=== PATIENT | male | born 1985 | race American Indian/Alaskan Native ===

== ENCOUNTER 2021-05-22 04:27 | Emergency (ER) | payer OTHER ==
--- NOTE | 2021-05-22 04:37 | Emergency Department Report ---
ED Extremity Problem HPI - General Stated complaint: CHEST PAIN/ARM PAIN Source: patient Mode of arrival: Ambulatory - History of Present Illness Initial comments: Patient is a 35-year-old -[place] male with no past medical history presents to the ED with complaint of acute onset persistent nontraumatic lateral right neck pain that radiates to the right shoulder, anterior right chest wall and distal right with tingling sensation for the last 2 weeks after heavy lifting in gymnasium. Patient states that he is currently taking ibuprofen as needed for pain as prescribed by her his primary care physician but that in the last 5 days the pain has not resolved and is getting worse. Patient denies chest pain, shortness of breath, dizziness, syncope, traumatic injury, fall, back pain, change in vision, syncope, headache, diaphoresis, nausea and vomiting, abdominal pain, fever and chills. MD Complaint: extremity pain (Right shoulder pain), joint paint (Right shoulder pain), other (Right lateral neck pain that radiates to the anterior right chest wall) -: Sudden, week(s) (2) Location: right (Right shoulder), upper extremity (Right shoulder), other (Anterior right chest wall and right lateral neck pain) History of Same: No -: Yes myalgia, Yes arthralgia Radiation: distal Severity scale (0 -10): 8 Quality: aching, sharp Consistency: constant Improves with: nothing Worsens with: weight bearing, walking, exertion, palpation Associated Symptoms: denies other symptoms, chest pain (Anterior right lateral chest wall pain), arthralgias (Right shoulder pain), other (Right lateral neck pain). denies: shortness of breath, fever, myalgias - Related Data Previous Rx's Medication Instructions Recorded Last Taken Type Naproxen Sodium [Aleve] 220 mg PO Q8H PRN #50 tablet 02/17/15 Unknown Rx Baclofen 20 mg PO Q12H PRN #24 tablet 05/22/21 Unknown Rx predniSONE [Deltasone] 60 mg PO QDAY #15 tab 05/22/21 Unknown Rx traMADoL [Ultram] 50 mg PO Q6HR PRN #12 tablet 05/22/21 Unknown Rx Allergies Allergy/AdvReac Type Severity Reaction Status Date / Time No Known Allergies Allergy Unverified 02/17/15 01:29 ED Review of Systems ROS: Stated complaint: CHEST PAIN/ARM PAIN Other details as noted in HPI Constitutional: denies: chills, fever Eyes: denies: eye pain, eye discharge, vision change ENT: denies: ear pain, throat pain Respiratory: denies: cough, shortness of breath, wheezing Cardiovascular: chest pain (Anterior right chest wall pain). denies: palpit ations Endocrine: no symptoms reported Gastrointestinal: denies: abdominal pain, nausea, diarrhea Genitourinary: denies: urgency, dysuria Musculoskeletal: arthralgia (Right shoulder pain), other (Lateral right neck pain). denies: back pain, joint swelling Skin: denies: rash, lesions Neurological: denies: headache, weakness, paresthesias Psychiatric: denies: anxiety, depression Hematological/Lymphatic: denies: easy bleeding, easy bruising ED Past Medical Hx - Past Medical History Hx Hypertension: No Hx CVA: No - Social History Smoking Status: Never Smoker Substance Use Type: None - Medications Home Medications: Home Medications Medication Instructions Recorded Confirmed Last Taken Type Naproxen Sodium [Aleve] 220 mg PO Q8H PRN #50 tablet 02/17/15 Unknown Rx Baclofen 20 mg PO Q12H PRN #24 tablet 05/22/21 Unknown Rx predniSONE [Deltasone] 60 mg PO QDAY #15 tab 05/22/21 Unknown Rx traMADoL [Ultram] 50 mg PO Q6HR PRN #12 tablet 05/22/21 Unknown Rx ED Physical Exam - General General appearance: alert, in no apparent distress - Head Head exam: Present: atraumatic, normocephalic, normal inspection - Eye Eye exam: Present: normal appearance, PERRL, EOMI Pupils: Present: normal accommodation - ENT ENT exam: Present: normal exam, normal orophraynx, mucous membranes moist, TM's normal bilaterally, normal external ear exam - Neck Neck exam: Present: normal inspection, tenderness (Palpable right lateral cervical paraspinal musculoskeletal tenderness), full ROM - Respiratory Respiratory exam: Present: normal lung sounds bilaterally, chest wall tenderness (Palpable reproducible anterior right chest wall tenderness). Absent: respiratory distress, wheezes, rales, rhonchi, accessory muscle use, decreased breath sounds, prolonged expiratory - Cardiovascular Cardiovascular Exam: Present: regular rate, normal rhythm, normal heart sounds. Absent: systolic murmur, diastolic murmur, rubs, gallop - GI/Abdominal GI/Abdominal exam: Present: soft, normal bowel sounds. Absent: tenderness, guarding, rebound, hyperactive bowel sounds, hypoactive bowel sounds, mass - Extremities Exam Extremities exam: Present: normal inspection, full ROM, tenderness (Palpable right shoulder tenderness), normal capillary refill - Back Exam Back exam: Present: normal inspection, full ROM. Absent: tenderness, CVA tenderness (R), CVA tenderness (L), muscle spasm, paraspinal tenderness, vertebral tenderness - Neurological Exam Neurological exam: Present: alert, oriented X3, CN II-XII intact, normal gait, reflexes normal - Psychiatric Psychiatric exam: Present: normal affect, normal mood - Skin Skin exam: Present: warm, dry, intact, normal color. Absent: rash ED Course Vital Signs 05/22/21 05/22/21 04:54 05:02 Temperature 98.4 F Pulse Rate 79 Respiratory 24 19 Rate Blood Pressure 138/71 [Right] O2 Sat by Pulse 100 Oximetry ED Medical Decision Making - Medical Decision Making This is a 35-year-old -[place] male with no past medical history presents to the ED with complaint of acute onset persistent nontraumatic lateral right neck pain that radiates to the right shoulder, anterior right chest wall and distal right with tingling sensation for the last 2 weeks after heavy lifting in gymnasium. Patient states that he is currently taking ibuprofen as needed for pain as prescribed by her his primary care physician but that in the last 5 days the pain has not resolved and is getting worse. In the ED, patient is alert and oriented x3 and is not in any distress. Patient is hemodynamically stable. Patient was treated for pain in the ED and based on the history and physical exam findings, patient symptoms are likely due to cervical radiculopathy. Patient was discharged home on medications and advised to follow-up with his primary care physician in 7 to 10 days for reevaluation or return to the ED immediately if symptoms get worse. - Differential Diagnosis Cervical radiculopathy; shoulder strain; chest wall muscle strain; Critical care attestation.: If time is entered above; I have spent that time in minutes in the direct care of this critically ill patient, excluding procedure time. ED Disposition Clinical Impression: Cervical radiculopathy, Muscle strain of anterior chest wall Strain of sternocleidomastoid muscle Qualifiers: Encounter type: initial encounter Qualified Code(s): S16.1XXA - Strain of muscle, fascia and tendon at neck level, initial encounter Muscle strain of right shoulder Qualifiers: Encounter type: initial encounter Qualified Code(s): S46.911A - Strain of unspecified muscle, fascia and tendon at shoulder and upper arm level, right arm, initial encounter Disposition: -01 TO HOME OR SELFCARE Is pt being admited?: No Does the pt Need Aspirin: No Condition: Stable Instructions: Muscle Strain, [id number], Cervical Strain and Sprain Rehab- [facility], Cervical Radiculopathy, [id number] Additional Instructions: Your symptoms are likely due to cervical radiculopathy which is an impingement of the nerve that radiates from the neck, thereby causing pain in your right shoulder, anterior right chest wall and right arm. Therefore take medications with food, drink plenty of fluids and follow-up with your primary care physician in 7 to 10 days for reevaluation. Return to the ED immediately if symptoms get worse. Prescriptions: Baclofen 20 mg PO Q12H PRN #24 tablet PRN Reason: Muscle Spasm predniSONE [Deltasone] 60 mg PO QDAY #15 tab traMADoL [Ultram] 50 mg PO Q6HR PRN #12 tablet PRN Reason: Pain Referrals: [facility] [Provider Group] - 7-10 days Forms: Accompanied Note, Work/School Release Form(ED) Time of Disposition: 04:38 Print Language: CROATIAN
[2021-05-22] MEDS ORDERED: ACETAMINOPHEN 500 MG TAB PO ONE (04:39)
[2021-05-22] MEDS ORDERED: predniSONE 20 MG TAB PO ONE (04:39)
[2021-05-22] MEDS ORDERED: CYCLOBENZAPRINE 10 MG TAB PO ONE (04:39)
[2021-05-22 04:54] VITALS: BP 138/71
== END 2021-05-22 05:40 | disposition home or self-care (01) ==
LOC: ED 04:27
DX: S16.1XXA Strain of muscle, fascia and tendon at neck level, initial encounter (principal); S46.911A Strain of unspecified muscle, fascia and tendon at shoulder and upper arm level, right arm, initial encounter; S29.011A Strain of muscle and tendon of front wall of thorax, initial encounter; X58.XXXA Exposure to other specified factors, initial encounter; Y93.89 Activity, other specified; Y92.89 Other specified places as the place of occurrence of the external cause; Y99.8 Other external cause status
CPT/HCPCS: 99282; J7512